=== PATIENT | female | born 1980 ===

== ENCOUNTER 2018-04-10 07:50 | Emergency (ER) | payer OTHER ==
[2018-04-10 07:55] VITALS: RESP 18
--- NOTE | 2018-04-10 08:47 | C.PDOC ---
History Of Present Illness 37yo female, presents to ED for evaluation of a diffuse rash to her body since 4 days ago. Patient states she used a new lotion 4 days ago and applied it on her legs and dabbed in on her arm; she states wherever she put the lotion, she subsequently noted red bumps to those areas. She denies any itching, throat swelling, lip swelling, difficulty breathing. No other complaints. PMD: Shawn Stack Time Seen by Provider: 04/10/18 07:56 Chief Complaint (Nursing): Allergic Reaction History Per: Patient History/Exam Limitations: no limitations Onset/Duration Of Symptoms: Days Current Symptoms Are (Timing): Still Present Possible Cause: Other (lotion) Associated Symptoms: Skin Rash, Redness. denies: Swelling, Trouble Swallowing, Itching Severity: Mild Recent travel outside of the [place]: No Additional History Per: Patient Past Medical History Reviewed: Historical Data, Nursing Documentation, Vital Signs Vital Signs: Last Vital Signs Temp 98 F 04/10/18 08:57 Pulse 76 04/10/18 08:57 Resp 18 04/10/18 08:57 BP 126/74 04/10/18 08:57 Pulse Ox 98 04/10/18 08:57 - Medical History PMH: No Chronic Diseases Surgical History: No Surg Hx Family History: States: No Known Family Hx - Social History Hx Alcohol Use: Yes Hx Substance Use: No Review Of Systems Except As Marked, All Systems Reviewed And Found Negative. Constitutional: Negative for: Fever, Chills ENT: Negative for: Mouth Swelling, Throat Swelling Respiratory: Negative for: Shortness of Breath Gastrointestinal: Negative for: Nausea, Vomiting Skin: Positive for: Rash Physical Exam - Physical Exam Appears: Non-toxic, No Acute Distress Skin: Warm, Dry, Rash (diffuse erythematous maculopapular rash to legs and arms. ) Head: Atraumatic, Normacephalic Eye(s): bilateral: Normal Inspection Oral Mucosa: Moist Neck: Normal ROM, Supple Chest: Symmetrical Cardiovascular: Rhythm Regular Respiratory: Normal Breath Sounds, No Wheezing Extremity: Normal ROM, No Pedal Edema Neurological/Psych: Oriented x3 Gait: Steady ED Course And Treatment O2 Sat by Pulse Oximetry: 100 (RA) Pulse Ox Interpretation: Normal Progress Note: Patient treated with prednisone PO. on re-evaluation in no distress. discharged to home Reassessment Condition: Improved Medical Decision Making Medical Decision Making: Plan: -- Prednisone 60mg PO Progress: 0845 Patient reports feeling much better. Instructed to take medications as prescribed and to follow up with PMD in 2-3 days. Stable for discharge home. Disposition Counseled Patient/Family Regarding: Studies Performed, Diagnosis, Need For Followup, Rx Given - Disposition Referrals: [facility] [Outside] [facility] [Outside] Disposition: HOME/ ROUTINE Disposition Time: 09:00 Condition: GOOD Additional Instructions: Follow up with PMD or clinic for further evaluation Prescriptions: Methylprednisolone [Medrol Dose Pack (21 tabs)] 4 mg PO DAILY #21 mg Instructions: Hives, Skin Rash Forms: [employer] (Peruvian) - POA Present On Arrival: None - Clinical Impression Clinical Impression: Allergic urticaria - PA / CENTRAL SERVICE TECH / Resident Statement MD/DO has reviewed & agrees with the documentation as recorded. - Scribe Statement The provider has reviewed the documentation as recorded by the Scribe (Dedra Best) Provider Attestation: All medical record entries made by the Scribe were at my direction and personally dictated by me. I have reviewed the chart and agree that the record accurately reflects my personal performance of the history, physical exam, medical decision making, and the department course for this patient. I have also personally directed, reviewed, and agree with the discharge instructions and disposition.
[2018-04-10 09:03] VITALS: BP 126/74; PULSE 76; TEMP 98
[2018-04-10 14:29] VITALS: O2SAT 100
== END 2018-04-10 08:58 | disposition home or self-care (01) ==
LOC: C.ER 07:50
DX: L50.0 Allergic urticaria (principal)